=== PATIENT | male | born 1950 | race Caucasian/White ===

== ENCOUNTER 2021-06-29 08:33 | Emergency (ER) | payer MEDICARE, SELFPAY ==
[2021-06-29 09:00] VITALS: BP 186/106; PULSE 87; RESP 16; RESP 20; TEMP 36.4; O2SAT 96
--- NOTE | 2021-06-29 09:03 | ED.GENADULT ---
HPI - General Adult General Chief complaint: Unspecified Stated complaint: SCABIES Time Seen by Provider: 06/29/21 09:04 Source: patient History of Present Illness HPI narrative: 70-year-old male presents to the ER with -- generalized maculopapular rash for the past 3 months. Intensely pruritic. He was treated with scabies appointment which she used once and then repeated it after 3 days approximately 2 weeks ago. He continues to have ongoing itching which is worse at night and was when he gets under the covers. -- The patient got the COVID vaccination Art affected by [place] and developed a left lower extremity DVT for which she has been on Xarelto. The patient continues to have swelling of the left lower extremity with weeping. No chest pain or shortness of breath. Onset (ago): month(s) ( Started 3 months ago) Relieving factors: none Exacerbating factors: other ( when he gets under the bed covers at night.) Associated symptoms: rash Related Data Home Medications Medication Instructions Recorded Confirmed Xarelto 20 mg PO DAILY 06/29/21 06/29/21 garlic 1,000 mg PO DAILY 06/29/21 06/29/21 Allergies Allergy/AdvReac Type Severity Reaction Status Date / Time No Known Allergies Allergy Verified 06/29/21 08:58 Review of Systems Review of Systems: All systems reviewed & are unremarkable except as noted in HPI and below Constitutional: Constitutional: Reports as per HPI Eyes: Eyes: Reports as per HPI ENT: Reports system reviewed and no additional complaints, except as documented Cardiovascular: Cardiovascular: Reports as per HPI Comments: No chest pain or palpitation Respiratory: Comments: no cough, sputum production, shortness of breath or pleuritic chest pain Gastrointestinal: Gastrointestinal: Reports no additional gastrointestinal complaints Genitourinary: Genitourinary: Reports no additional male genitourinary complaints Musculoskeletal: Musculoskeletal: Reports no additional musculoskeletal complaints Comments: left leg swelling. Integumentary/Breasts: Comments: Generalized rash predominantly on the front and the back of the trunk and proximal upper and lower extremities. Neurologic: Reports system reviewed and no additional complaints, except as documented Comments: No focal neuro deficits. Psychiatric: Psychiatric: Reports no additional psychiatric complaints Endocrine: Endocrine: Reports no additional endocrine complaints Hematologic/Lymphatic: Hematologic/Lymphatic: Reports no additional hematologic/lymphatic complaints Allergic/Immunologic: Allergic/Immunologic: Reports no additional allergic/immunologic complaints PMFSH Past Medical History Medical History (Updated 06/29/21 @ 09:23 by Roberth Castro MD) DVT (deep venous thrombosis) Surgical History Surgical History (Updated 06/29/21 @ 09:23 by Roberth Castro MD) Status post repair of ventral hernia Social History Social History Smoking status: Never smoker Exam Const: General: cooperative, healthy appearing, comfortable, no acute distress, well developed and alert HENMT: Head: normal to inspection Ears: hearing grossly normal bilaterally General nose exam: Normal external nose present Face and sinus: normal facial exam Mouth: Yes Normal oral and palatal mucosa present, Yes lip normal and Yes tongue normal Throat: posterior oropharynx normal Eyes: General: appearance normal, both eyes and all related structures Alignment and Position: alignment normal Pupils: Equal, round and reactive pupils present Neck: Neck: normal visual inspection and full ROM Chest: Chest palpation & inspection: normal inspection of the chest Resp: Effort & Inspection: normal respiratory effort Auscultation: clear to auscultation bilaterally Cardio: Jugular venous distension: no JVD Palpation: normal PMI Rate: regular rate Rhythm: regular rhythm Heart so
[2021-06-29 09:13] VITALS: BP 140/91; PULSE 74; RESP 16; O2SAT 96
--- NOTE | 2021-06-29 09:32 | PC.NURSE ---
RN performed skin scrapping test on pt. Pt tolerated well.
[2021-06-29 10:01] VITALS: BP 138/74; PULSE 90; RESP 16; O2SAT 98
[2021-06-29 10:37] LABS: Reference Lab Test Name SCABIES; Reference Lab Test Result NONE SEEN
--- NOTE | 2021-07-02 08:23 | ED_ITS ---
HPI - General Adult General Chief complaint: Unspecified Stated complaint: SCABIES Time Seen by Provider: 06/29/21 09:04 Source: patient History of Present Illness Relieving factors: none Exacerbating factors: other ( when he gets under the bed covers at night.) Associated symptoms: rash Related Data Home Medications Medication Instructions Recorded Confirmed Xarelto 20 mg PO DAILY 06/29/21 06/29/21 garlic 1,000 mg PO DAILY 06/29/21 06/29/21 Allergies Allergy/AdvReac Type Severity Reaction Status Date / Time No Known Allergies Allergy Verified 06/29/21 08:58 [facility] Past Medical History Medical History (Updated 06/29/21 @ 09:23 by Roberth Castro MD) DVT (deep venous thrombosis) Surgical History Surgical History (Updated 06/29/21 @ 09:23 by Roberth Castro MD) Status post repair of ventral hernia Social History Social History Smoking status: Never smoker Course Vital Signs Vital signs: Vital Signs Temperature 36.4 C L 06/29/21 09:00 Pulse Rate 87 06/29/21 09:00 Respiratory Rate 16 06/29/21 09:00 Blood Pressure 186/106 H 06/29/21 09:00 Pulse Oximetry 96 06/29/21 09:00 Temperature 36.4 C L 06/29/21 09:00 Pulse Rate 90 06/29/21 10:01 Respiratory Rate 16 06/29/21 10:01 Blood Pressure 138/74 06/29/21 10:01 Pulse Oximetry 98 06/29/21 10:01 Medical Decision Making Vital Signs Vital Signs: Vital Signs Temperature 36.4 C L 06/29/21 09:00 Pulse Rate 87 06/29/21 09:00 Respiratory Rate 16 06/29/21 09:00 Blood Pressure 186/106 H 06/29/21 09:00 Pulse Oximetry 96 06/29/21 09:00 Temperature 36.4 C L 06/29/21 09:00 Pulse Rate 90 06/29/21 10:01 Respiratory Rate 16 06/29/21 10:01 Blood Pressure 138/74 06/29/21 10:01 Pulse Oximetry 98 06/29/21 10:01 Lab Data Labs: Lab Results 01/25/22 Range/Units 10:10 Ref Lab Test Name Scabies Ref Lab Test Result None seen Discharge Plan Discharge Patient Disposition: Home, Self-Care Condition: Stable Instructions: Antibiotic Form Additional Instructions: use compression stockings for the left leg. Follow-up with vascular surgery for possible vascular intervention. Patient Language: Brazilian Prescriptions: New RID Complete Lice [place] Kit 0.5 % aerosol,spray 1 spray miscellaneous ONCE Qty: 141.8 RF: 1 No Action Xarelto 20 mg PO DAILY RF: 0 garlic 1,000 mg PO DAILY RF: 0 [facility]Referrals: [email or web address]G[place] MD [Primary Care Provider] -
== END 2021-06-29 10:00 | disposition home or self-care (01) ==
PROVIDERS: Emergency Provider Internal Medicine Critical Care Medicine; PCP Family Medicine
DX: B86 Scabies (principal)
CPT/HCPCS: 36415; 99283

== ENCOUNTER 2021-08-02 17:49 | Emergency (ER) | payer MEDICARE, SELFPAY ==
--- NOTE | ~2021-08-02 | US_ITS ---
US venous doppler LE RT DATE: 08/02/2021 18:14 INDICATION: Deep venous thrombosis TECHNIQUE: Real-time and color flow imaging and Doppler analysis of the veins of the right lower extr emity COMPARISON: None FINDINGS: There is spontaneous and phasic flow and normal augmentation and color flow signal and norm al compression of the deep veins of the right lower extremity. The greater saphenous vein is patent. IMPRESSION: Negative examination Reviewed, dictated and finalized at [facility] Reviewed, dictated and finalized at [facility]. IR TECHNICIAN IMPRESSION: Negative examination
[2021-08-02 17:50] VITALS: BP 174/99; PULSE 119; RESP 18; TEMP 36.3; O2SAT 94
--- NOTE | 2021-08-02 18:41 | ED.GENADULT ---
HPI - General Adult General Chief complaint: Extremity Injury, Lower Stated complaint: blood clot Time Seen by Provider: 08/02/21 17:57 Source: patient History of Present Illness HPI narrative: 70-year-old male presented to the emergency department for evaluation of right lower extremity fullness. Patient states that after getting the [employer] vaccine that he developed a left lower extremity DVT. Patient had been started on Xarelto for this. Patient was on Xarelto for 5 months and did develop an allergic reaction to this and was subsequently switched to Coumadin/warfarin. Patient has been taking this but is unsure of what his INR is. Over the course of the last few weeks patient states that the rash has continued to improve but patient has still had itching. Patient states over the last few days he has had increased right lower extremity fullness and was instructed to present to the emergency department for DVT rule out. Patient denies any associated chest pain or shortness of breath. Patient states that the rash is continued to improve. Patient denies any associated nausea vomiting or diarrhea. Related Data Home Medications Medication Instructions Recorded Confirmed Xarelto 20 mg PO DAILY 06/29/21 06/29/21 garlic 1,000 mg PO DAILY 06/29/21 06/29/21 Allergies Allergy/AdvReac Type Severity Reaction Status Date / Time No Known Allergies Allergy Verified 08/02/21 17:54 Review of Systems Review of Systems: CONSTITUTIONAL: Denies fever, chills, or sweats. EYES: Denies visual changes, redness, or discharge. ENT: Denies rhinorrhea, congestion, sore throat, or otalgia. CARDIOVASCULAR: Bilateral lower extremity edema RESPIRATORY: Denies cough or dyspnea. GASTROINTESTINAL: Denies abdominal pain, nausea, vomiting, or diarrhea. GENITOURINARY: Denies dysuria or hematuria. SKIN: Healing drug rash but continues to be itchy MUSCULOSKELETAL: Denies back pain, joint pain, or myalgia. [facility] Past Medical History Medical History (Updated 08/02/21 @ 19:48 by Hayden Grier MD) DVT (deep venous thrombosis) Surgical History Surgical History (Updated 06/29/21 @ 09:23 by Roberth Castro MD) Status post repair of ventral hernia Social History Social History Smoking status: Never smoker Exam Narrative: APPEARANCE: Well appearing, no pain, no distress, well-nourished. HEAD: normocephalic, atraumatic. EYES: PERRLA/EOMI, conjunctivae clear. NOSE: Normal no drainage RESPIRATORY: Airway patent, respirations nonlabored. Clear to auscultation bilaterally, no rales, rhonchi, wheezing. CARDIOVASCULAR: Regular rate and rhythm without murmurs rubs or gallops. ABDOMINAL: Soft, nontender, nondistended, normal bowel sounds MUSCULOSKELETAL: Moves all extremities. Bilateral lower extremity edema. No calf tenderness bilaterally. NEURO: Alert. Cranial nerves II through XII intact. Neurological intact SKIN: Excoriated drug rash on lower extremities bilaterally Course Course Emergency Course: Patient's DVT study was negative for DVT. Patient's INR was therapeutic. Patient was treated with Benadryl for itching but this did not significantly help his symptoms. Patient was encouraged to continue to use moisturizers on his lower legs and he was also encouraged to stop the persistent scratching. Patient states he is reluctant to stop scratching and excoriation. Due to lower extremity edema patient is being given a short trial of 5 days of Lasix to see if this helps with his edema. Patient was encouraged with close follow-up with his primary care physician for further evaluation. All questions concerns were addressed patient was stable at time of discharge from the emergency department. Vital Signs Vital signs: Vital Signs Temperature 97.4 F L 08/02/21 17:50 Pulse Rate 119 H 08/02/21 17:50 Respiratory Rate 18 08/02/21 17:50 Blood Pressure 174/99 H 08/02/21 17:50 Pul
[2021-08-02 18:54] VITALS: BP 158/106; PULSE 90; RESP 16; TEMP 36.4; O2SAT 98
[2021-08-02 19:06] LABS: Basophils Absolute Auto 0.1 K/mm3 (0.0-0.1); Basophils Percent Auto 0.6 % (0.2-1.2); Eosinophils Absolute Auto 0.4 K/mm3 (0-0.3); Eosinophils Percent Auto 4.7 % (0-4.4); Hematocrit 48.1 % (42.0-52.0); Hemoglobin 16.3 g/dL (14.0-18.0); Immature Granulocyte Absolute 0.04 K/mm3 (0.00-0.031); Immature Granulocyte Percent A 0.5 % (0-0.5); Lymphocytes Absolute Auto 0.93 K/mm3 (0.9-3.2); Lymphocytes Percent Auto 10.6 % (18.3-44.2); Mean Corpuscular HGB Conc 33.9 g/dl (32-36); Mean Corpuscular Hemoglobin 31.3 pg (26-34); Mean Corpuscular Volume 92.5 fl (80-100); Mean Platelet Volume 9.8 fl (7.4-10.4); Monocytes Absolute Auto 0.8 K/mm3 (0.1-0.6); Monocytes Percent Auto 9.5 % (2.6-8.5); Neutrophils Absolute Auto 6.5 K/mm3 (1.3-6.7); Neutrophils Percent Auto 74.1 % (45.5-73.1); Platelet Count Result 221 k/mm3 (150-375); Red Cell Distribution Width 14.8 % (11.5-14.5); White Blood Count 8.8 K/mm3 (4.5-10.0)
[2021-08-02 19:17] LABS: Partial Thromboplastin Time 31.4 SECONDS (22.3-36.8); Prothrombin Time 22.3 Seconds (11.1-14.7)
[2021-08-02 19:20] LABS: Alanine Aminotransferase 24 U/L (4-50); Albumin Level 4.2 g/dL (3.5-5.1); Alkaline Phosphatase 75 U/L (38-126); Anion Gap 8 mmol/L (8-16); Aspartate Amino Transferase 26 U/L (17-59); Bilirubin,Total 0.5 mg/dL (0.2-1.3); Blood Urea Nitrogen 19 mg/dL (9-20); Carbon Dioxide 28 mmol/L (22-30); Chloride 103 mmol/L (98-107); Estimated CRCL calculation 76 ml/min; Estimated Glomerular Filt Rate > 60; Glucose 156 mg/dL (65-110); Potassium 4.3 mmol/L (3.4-5.0); Sodium 139 mmol/L (137-145)
[2021-08-02] MEDS: diphenhydrAMINE HCl CAP 25 MG CAPSULE 50 MG PO (19:25)
[2021-08-02 20:07] VITALS: BP 159/103; PULSE 83; RESP 14; O2SAT 95
== END 2021-08-02 20:09 | disposition home or self-care (01) ==
PROVIDERS: Emergency Provider Emergency Medicine; PCP Family Medicine
DX: R60.0 Localized edema (principal); R21 Rash and other nonspecific skin eruption; Z86.718 Personal history of other venous thrombosis and embolism; Z79.01 Long term (current) use of anticoagulants
CPT/HCPCS: 36415; 80053; 85025; 85610; 85730; 93971; 99284; A9270

== ENCOUNTER 2021-08-19 08:04 | Outpatient (CLI) | payer MEDICARE, SELFPAY ==
[2021-08-19 08:27] LABS: INR 2.3; Prothrombin Time 23.3 Seconds (9.50-12.10)
== END 2021-08-19 08:05 | disposition home or self-care (01) ==
LOC: CHSLAB 08:07
PROVIDERS: Visit Provider Nurse Practitioner Family
DX: I82.409 Acute embolism and thrombosis of unspecified deep veins of unspecified lower extremity (principal)
CPT/HCPCS: 36415; 85610